=== PATIENT | male | born 1995 | race Caucasian/White ===

== ENCOUNTER 2016-03-25 20:46 | Emergency (ER) | payer SELFPAY ==
[~2016-03-25] VITALS: Ht 165.1 cm; Wt 61.4 kg
[2016-03-25] MEDS ORDERED: BACITRACIN 0.9 GM PACKET OINTMENT TP ONE (21:15)
[2016-03-25] MEDS ORDERED: PERTUSS(ACELL),DIPH,TET VAC/PF 0.5 ML VIAL IM ONE (21:15)
[2016-03-25] MEDS ORDERED: POVIDONE-IODINE 10% 15 ML SOLUTION UD TP ONE (21:15)
[2016-03-25] MEDS ORDERED: LIDOCAINE HCL BUFFERED 1% 20 ML VIAL INJ ONE (21:15)
[2016-03-25] MEDS ORDERED: ONDANSETRON HCL 4 MG/2 ML VIAL IVP ONE (21:45)
[2016-03-25] MEDS ORDERED: SODIUM CHLORIDE 0.9% 1,000 ML IV ONE (21:45)
[2016-03-25 22:55] VITALS: BP 121/77
== END 2016-03-25 22:58 | disposition home or self-care (01) ==
LOC: EDBD 20:49 → EMS 20:49 → EEVIPCON 20:49 → EMS 22:58
DX: S01.511A Laceration without foreign body of lip, initial encounter (principal); F10.129 Alcohol abuse with intoxication, unspecified; F17.210 Nicotine dependence, cigarettes, uncomplicated; Y08.89XA Assault by other specified means, initial encounter; Y93.89 Activity, other specified; Y92.9 Unspecified place or not applicable; Y99.9 Unspecified external cause status
CPT/HCPCS: 12013; 90715; 96361; 96372; 96374; 99284; 99406; J2405; J3490; J7030

== ENCOUNTER 2018-04-25 19:45 | Emergency (ER) | payer MEDICAID ==
[~2018-04-25] VITALS: Ht 175.3 cm; Wt 64.5 kg
[2018-04-26] MEDS ORDERED: LIDOCAINE 1% 10 ML VIAL INJ ONE (00:15)
[2018-04-26] MEDS ORDERED: IBUPROFEN 100 MG/5 ML SUSPENSION UDCUP PO ONE (01:30)
[2018-04-26 01:48] VITALS: BP 130/78
== END 2018-04-26 01:49 | disposition home or self-care (01) ==
LOC: EMS 19:46
DX: S01.511A Laceration without foreign body of lip, initial encounter (principal); F17.210 Nicotine dependence, cigarettes, uncomplicated; W50.0XXA Accidental hit or strike by another person, initial encounter; Y93.89 Activity, other specified; Y92.89 Other specified places as the place of occurrence of the external cause; Y99.8 Other external cause status
CPT/HCPCS: 12011; 99283; J3490

== ENCOUNTER 2018-04-30 13:28 | Emergency (ER) | payer MEDICAID ==
[~2018-04-30] VITALS: Ht 175.3 cm; Wt 63.6 kg
[2018-04-30 14:07] VITALS: BP 127/62
== END 2018-04-30 14:45 | disposition left against medical advice (07) ==
LOC: EMS 13:28
DX: Z48.02 Encounter for removal of sutures (principal); Z53.21 Procedure and treatment not carried out due to patient leaving prior to being seen by health care provider

== ENCOUNTER 2022-02-05 15:30 | Emergency (ER) | payer MEDICAID ==
[~2022-02-05] VITALS: Ht 170.2 cm; Wt 75.0 kg
[2022-02-05 15:39] VITALS: BP 116/65
[2022-02-05] MEDS ORDERED: ACET-66 PO (17:11)
[2022-02-05] MEDS ORDERED: ACETAMINOPHEN 500 MG TABLET PO ONE (17:15)
== END 2022-02-05 17:37 | disposition home or self-care (01) ==
LOC: EMS 15:49
DX: S01.01XD Laceration without foreign body of scalp, subsequent encounter (principal); X58.XXXD Exposure to other specified factors, subsequent encounter; Z48.02 Encounter for removal of sutures; F10.20 Alcohol dependence, uncomplicated; F12.90 Cannabis use, unspecified, uncomplicated; F15.10 Other stimulant abuse, uncomplicated; F17.210 Nicotine dependence, cigarettes, uncomplicated
CPT/HCPCS: 99282; Z7502; Z7610

== ENCOUNTER 2023-08-01 22:38 | Emergency (ER) | payer MEDICAID ==
[~2023-08-01] VITALS: Ht 175.3 cm; Wt 63.6 kg
[~2023-08-01 22:38] MED LIST: ACET-66 PO
[2023-08-01 22:46] VITALS: BP 119/78; PULSE 92; RESP 18; TEMP 97.9
[2023-08-01] MEDS ORDERED: IBUP-1492 PO (23:44)
[2023-08-01] MEDS ORDERED: KETOROLAC TROMETHAMINE 30 MG/ML VIAL IM ONE (23:45)
[2023-08-01] MEDS: KETOROLAC TROMETHAMINE 60 MG/2 ML VIAL IM ONE (23:53)
== END 2023-08-02 00:02 | disposition home or self-care (01) ==
LOC: EMS 22:38
DX: S20.211A Contusion of right front wall of thorax, initial encounter (principal); F17.210 Nicotine dependence, cigarettes, uncomplicated; F12.90 Cannabis use, unspecified, uncomplicated; F15.10 Other stimulant abuse, uncomplicated; V00.132A Skateboarder colliding with stationary object, initial encounter; Y93.51 Activity, roller skating (inline) and skateboarding; Y92.89 Other specified places as the place of occurrence of the external cause; Y99.8 Other external cause status
CPT/HCPCS: 99283; 71100; 96372; J1885